=== PATIENT | female | born 1965 | race Caucasian/White ===

== ENCOUNTER → 2019-08-30 10:28 | Day surgery (SDC) | payer OTHER ==
[~2019-08-30 10:28] MED LIST: Adenosine* 3 MG/ML VIAL ONE; Heparin 2 UNITS/ML IVPREMIX* 2,000 ML IV ONE; Heparin(*) 1000 UNIT/ML 10 ML VIAL CATH LAB IV ONE; Iohexol 350 (CONTRAST) 200 ML MDV IV ONE; Lidocaine 1% INJ* 10 MG/ML 30 ML SDV ONE; Midazolam* 1 MG/ML 5 ML VIAL (5 MG) ONE; NS 0.9% 1000 ML** 1,000 ML IV SCH; VERAPAMIL 2.5 MG/ML 2 ML VIAL ** 5 mg/2 ml ONE; fentaNYL* 50 MCG/ML 2 ML VIAL (100 MCG VIAL) ONE; nitroGLYCERIN DRIP* 25,000 MCG/250 ML BTL ONE
[2019-08-30 17:31] VITALS: BP 147/93
--- NOTE | 2019-09-02 23:03 | CATH ---
CC: Dr. Navarro; Dr. Alves CATH REPORT: DATE OF PROCEDURE: 08/30/19 PRIMARY CARE PHYSICIAN: Dr. Navarro. [employer] PROFESSOR: Dr. Alves. PROCEDURE: Right radial artery access, bilateral selective coronary cineangiography, DFR evaluation LAD. HISTORY: A 53-year-old woman with relatively atypical chest pain and 4 years of fatigue, episodic in digestion. A stress echo reported a drop in ejection fraction from 45 to 50 down to 30 to 35 with ex ercise with anterior wall and inferoapical hypokinesis. This occurred at a relatively low level of e xercise. She was referred for coronary angiography. PROCEDURE ACCESS: Right radial artery. SHEATH: 6-F slender. MEDICATIONS: 1. Subcu lidocaine. 2. IV Versed. 3. IV fentanyl. 4. Heparin 3000 units. 5. Nitroglycerin 300 mcg. 6. Verapamil 3 mg IA. DIAGNOSTIC CATHETERS: 5-FL3.5, 5-FR4, 5-FMP. PRESSURE WIRE: COMET 0.014. After diagnostic coronary angiography, the diagnostic catheter and the COMET wire were used to evalua te the mid LAD with DFR. HEMODYNAMICS: Initial AO 118/75, LV 142/10-16, no aortic valve gradient on pullback. DFR, LAD 0.97, nonischemic. ANGIOGRAPHY: RCA: The RCA is dominant, smooth, supplies a moderate PDA a nd several smaller posterolateral branches, the RCA has no stenosis. Left main: The left main is normal, has no stenosis. LAD: The LAD is large, moderate, after a moderate diagonal there is a calcified eccentric 40% stenos is, distally the LAD extends to the apex. Circumflex: The circumflex is not dominant, is large, supplies a large distal marginal and 2 smaller posterolaterals, the circumflex is smooth, has no stenosis. LV gram: There is ectopy with injection, post PVC wall motion is normal but ejection fraction cannot be measured as it is post PVC. CONCLUSION: 1. Single-vessel disease with moderate LAD stenosis, with negative DFR, not consistent with an ische melissa-producing lesion. 2. Possible cardiomyopathy given abnormal response to exercise. 3. Successful right radial artery access. [id number]/[facility] #: [id number]
== END | disposition home or self-care (01) ==
LOC: CHICATH 10:28
PROVIDERS: ATTEND Internal Medicine Cardiovascular Disease
DX: I25.10 Atherosclerotic heart disease of native coronary artery without angina pectoris (principal); R94.31 Abnormal electrocardiogram [ECG] [EKG]; R00.0 Tachycardia, unspecified; R07.89 Other chest pain; R53.83 Other fatigue
CPT/HCPCS: 85347; 93458; 99156; 99157; C1887; J0153; J1644; J2250; J3010